=== PATIENT | male | born 1955 | race Caucasian/White ===

== ENCOUNTER 2023-04-26 10:53 | Day surgery (SDC) | payer BC ==
[2023-04-22 08:34] VITALS: BMI 26.6
[~2023-04-26 10:53] MED LIST: LACTATED RINGERS 1,000 ML IV SCH
[2023-04-26 11:24] VITALS: TEMP 98.4
[2023-04-26] MEDS ORDERED: PROPOFOL 10 MG/ML 20 ML VIAL IV ONE (11:46)
--- NOTE | 2023-04-26 11:49 | P.GSHP ---
History of Present Illness H&P Date: 04/26/23 Chief Complaint: Colon cancer screening with history of polyps 67-year-old male here for colonoscopy. Last colonoscopy 5 years ago. Patient has history of polyps in the cecum. No bowel complaints. No family history of colon cancer. Past Medical History Past Medical History: COPD, Eye Disorder, Hyperlipidemia, Hypertension, Musculoskeletal Disorder Additional Past Medical History / Comment(s): hx colon polyps,ARTHRITIS LOWER BACK AND RT KNEE- STATES PT HAD EPISODE AT AGE 20 WHERE HE PASSED OUT AND IT WAS SOME KIND OF A VALVE PROBLEM-HE TOOK MEDS FOR A TIME- CLEARED UP- SEE DR. MURCIA YEARLY sty removed from right eye,valve corrected itself with meds History of Any Multi-Drug Resistant Organisms: None Reported Past Surgical History: Tonsillectomy Additional Past Surgical History / Comment(s): colonoscopies,polyps Past Anesthesia/Blood Transfusion Reactions: No Reported Reaction Additional Past Anesthesia/Blood Transfusion Reaction / Comment(s): no hx blood transfusions Smoking Status: Never smoker - Past Family History Mother Family Medical History: Diabetes Mellitus, Hypertension Father Family Medical History: Cancer Additional Family Medical History / Comment(s): LUNG CA Medications and Allergies Home Medications Medication Instructions Recorded Confirmed Type Aspirin 81 mg PO DAILY 07/30/15 04/26/23 History Simvastatin [Zocor] 80 mg PO HS 07/30/15 04/26/23 History atenoloL [Tenormin] 50 mg PO HS 07/30/15 04/26/23 History Albuterol Inhaler [Ventolin Hfa 1 - 2 puff INHALATION Q6H PRN 04/13/23 04/26/23 History Inhaler] Ascorbic Acid [Vitamin C] 500 mg PO DAILY 04/13/23 04/26/23 History Cholecalciferol [Vitamin D3 (25 50 mcg PO DAILY 04/13/23 04/26/23 History Mcg = 1000 Iu)] Zinc Gluconate [Zinc] 50 mg PO DAILY 04/13/23 04/26/23 History Allergies Allergy/AdvReac Type Severity Reaction Status Date / Time No Known Allergies Allergy Verified 04/26/23 11:20 Surgical - Exam Vital Signs Temp Pulse Resp BP Pulse Ox 98.4 F 63 16 118/70 96 04/26/23 11:20 04/26/23 11:20 04/26/23 11:20 04/26/23 11:20 04/26/23 11:20 Physical exam: General: Well-developed, well-nourished HEENT: Normocephalic, sclerae nonicteric Abdomen: Nontender, nondistended Extremities: No edema Neuro: Alert and oriented Assessment and Plan (1) Colon cancer screening Narrative/Plan: Will proceed with colonoscopy at this time. Current Visit: Yes Status: Acute Code(s): Z12.11 - ENCOUNTER FOR SCREENING FOR MALIGNANT NEOPLASM OF COLON SNOMED Code(s): 737047768
--- NOTE | 2023-04-26 11:57 | P.PCN ---
Date of Procedure: 04/26/23 Procedure(s) Performed: PREOPERATIVE DIAGNOSIS: Colon cancer screening POSTOPERATIVE DIAGNOSIS: Diverticulosis PROCEDURE: Colonoscopy ANESTHESIA: MAC SURGEON: Minh Serrano M.D. SPECIMENS: None ENDOSCOPIC PROCEDURE: The patient was placed on the endoscopy table in the left decubitus position. The Olympus colonoscope was inserted into the anus and passed under direct visualization to the base of the cecum. The appendiceal orifice was visualized. From that point the scope was slowly withdrawn inspe cting all surfaces carefully. There were no neoplastic inflammatory or polypoid lesions throughout the cecum, ascending, transverse, descending, sigmoid and rectum. There was mild left-sided diverticulosis noted. Digital rectal examination was normal. The patient was taken to the recovery room in stable condition per anesthesia guidelines. RECOMMENDATIONS: Resume diet. Repeat colonoscopy in 5-7 years
[2023-04-26 12:23] VITALS: BP 105/78; PULSE 58; RESP 18
== END 2023-04-26 12:51 | disposition home or self-care (01) ==
LOC: ORWHC2ENDO 10:53
PROVIDERS: ATTEND Surgery
DX: Z12.11 Encounter for screening for malignant neoplasm of colon (principal); K57.30 Diverticulosis of large intestine without perforation or abscess without bleeding; J44.9 Chronic obstructive pulmonary disease, unspecified; I10 Essential (primary) hypertension; E78.5 Hyperlipidemia, unspecified; Z80.0 Family history of malignant neoplasm of digestive organs; Z86.010 Personal history of colon polyps; Z90.49 Acquired absence of other specified parts of digestive tract; Z83.3 Family history of diabetes mellitus; Z79.82 Long term (current) use of aspirin; Z79.899 Other long term (current) drug therapy
CPT/HCPCS: 45378; J2704